=== PATIENT | male | born 2000 | race Two or more races ===

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

== ENCOUNTER 2025-05-29 19:56 | Emergency (ER) | payer OTHER ==
[~2025-05-29] VITALS: Ht 165.1 cm; Wt 51.3 kg
[2025-05-29 22:30] LABS: BASO % 0.6 % (0.1-1.2); EOS # 0.08 (0.04-0.54); EOS % 1.5 % (0.7-7.0); LYMPH # 1.02 (1.18-3.74); LYMPH % 19.7 % (19.3-53.1); MEAN PLATELET VOLUME 9.70 fl (9.4-12.4); MONO # 0.62 (0.24-0.82); MONO % 11.9 % (4.7-12.5); NEUT # 3.43 (1.56-6.13); NEUT % 66.1 % (34.0-71.1); RED CELL DISTRIBUTION WIDTH 11.7 % (11.6-14.4)
[2025-05-29 22:59] LABS: ALT/SGPT 22.0 U/L (12-78); AST/SGOT 14.0 U/L (15-37); BILIRUBIN TOTAL 0.95 mg/dL (0.3-1.2); BUN CREA RATIO 10.0 (7.0-25.0); CREATININE SERUM 0.97 mg/dL (0.70-1.30); GFR 96.78; GLOBULINA 3.5 G/DL (2.4-3.5); GLUCOSE FASTING 106.0 mg/dL (65-100); OSMOLALITY SERUM 284.0 MOSM/KG (275-295)
[2025-05-29 23:59] LABS: COVID-19 AG POSITIVE (NEGATIVE)
[2025-05-30] MEDS ORDERED: ACETAMINOPHEN500 M1 PO (00:08)
[2025-05-30] MEDS ORDERED: PAXLOVID 300-11 EAC1 PO (00:08)
[2025-05-30] MEDS ORDERED: GILTUSS COUGH-118 M1 PO (00:08)
== END 2025-05-30 00:38 | disposition home or self-care (01) ==
LOC: ER 19:56
PROVIDERS: Preventive Medicine Public Health & General Preventive Medicine
DX: U07.1 COVID-19 (principal); Z91.018 Allergy to other foods